=== PATIENT | female | born 1970 | race Caucasian/White ===

== ENCOUNTER → 2020-08-06 | Day surgery (SDC) | payer BC ==
[~2020-08-06] VITALS: Ht 157.5 cm; Wt 49.9 kg
[2020-08-06] VITALS (9 sets, daily range): BP systolic 105–154; BP diastolic 68–90
[~2020-08-06] MED LIST: Atropine Sulfate 0.4mg/ml inj IVP PRN; DiphenhydrAMINE 50mg/ml Inj IVP PRN; HYDROcodone/Acetamin 5/325 tab ORAL PRN; HYDROcodone/Acetamin 7.5/325 tab ORAL PRN; Hydromorphone 0.5mg/0.5ml inj IVP PRN; Ketorolac 30mg Inj IV PRN; LORazepam Inj 2mg/ml 1ml IV PRN; LR 1000ml 1,000 ML IVLG SCH; Labetalol 5mg/ml 20ml vial IV PRN; Lidocaine 1% Plain 30 ml INJ ONE; Meperidine 25mg/1ml Inj (FOR RIGORS ONLY) IV PRN; Metoclopramide 10mg/2ml Inj IVP PRN; Midazolam 2mg/2ml Inj IVP PRN; fentaNYL 100 mcg/2 mL IV PRN; oxyCODONE HCL/Acetaminophen 5/325mg ORAL PRN
--- NOTE | 2020-08-06 07:09 | Pre-Procedure Note/Attestation ---
Pre-Procedure Note/Attestation Complete Prior to Procedure Planned Procedure: not applicable Procedure Narrative: esophagogastroduodenoscopy colon Indications for Procedure Pre-Operative Diagnosis: heme + stool Attestation I attest that I discussed the nature of the procedure; its benefits; risks and complications; and alternatives (and the risks and benefits of such alternatives), prior to the procedure, with the patient (or the patient's legal outside sales account representative). I attest that, if there was a reasonable possibility of needing a blood transfusion, the patient (or the patient's legal outside sales account representative) was given the [facility] standardized written summary, pursuant to the Karan Dundas Blood Safety Act ([place] Health and Safety Code # 1645, as amended). I attest that I re-evaluated the patient just prior to the surgery and that there has been no change in the patient's H&P, except as documented below: Irish Lewis MD Aug 06, 2020 07:09
--- NOTE | 2020-08-06 07:09 | Short Stay Surgery H&P ---
History of Present Illness History of Present Illness Chief Complaint see attached HPI Rachell Morales is a 49 year old female who was admitted on for Blood In Stool Patient History Allergies: Coded Allergies: PENICILLINS (Verified Allergy, Unknown, 08/05/20) Medication History No Active Prescriptions or Reported Meds Physical Exam Vital Signs Last Vital Signs Date Time Temp Pulse Resp B/P (MAP) Pulse Ox O2 Delivery O2 Flow Rate FiO2 08/06/20 06:17 Room Air 08/06/20 06:17 97.1 75 18 127/90 99 Plan Attestation Are the patient's medical conditions optimized for surgery? Irish Lewis MD Aug 06, 2020 07:09
--- NOTE | 2020-08-06 07:24 | Anethesia Preoperative Eval ---
Anesthesia Pre-op PMH/ROS General Date of Evaluation: Aug 06, 2020 Time of Evaluation: 06:49 Anesthesiologist: Jennifer ASA Score: ASA 3 Mallampati Score Class I : Soft palate, uvula, fauces, pillars visible Class II: Soft palate, uvula, fauces visible Class III: Soft palate, base of uvula visible Class IV: Only hard plate visible Mallampati Classification: Class II Surgeon: Joshua Diagnosis: Hematochiezia Surgical Procedure: EGD/ Colonoscopy Anesthesia History: none Family History: no anesthesia problems Allergies: Coded Allergies: PENICILLINS (Verified Allergy, Unknown, 08/05/20) Medications: see eMAR Patient NPO?: Yes Past Medical History Gastrointestinal/Genitourinary: Reports: other - Bloody Stool Neurologic/Psychiatric: Reports: depression/anxiety Anesthesia Pre-op Phys. Exam Physician Exam Last Vital Signs Date Time Temp Pulse Resp B/P (MAP) Pulse Ox O2 Delivery O2 Flow Rate FiO2 08/06/20 06:17 Room Air 08/06/20 06:17 97.1 75 18 127/90 99 Constitutional: NAD Neurologic: CN 2-12 intact Cardiovascular: RRR Respiratory: CTA Gastrointestinal: S/NT/ND Airway Exam Mallampati Score: Class II MO: full ROM: full Teeth: missing, intact Anesthesia Pre-op A/P Risk Assessment & Plan Assessment: ASA 3 Plan: TIVA Status Change Before Surgery: Sebastian Canada MD Aug 06, 2020 07:24
--- NOTE | 2020-08-06 07:25 | Immediate Post-Op Evaluation ---
Immediate Post-Op Evalulation Immediate Post-Op Evalulation Procedure: EGD/Colonoscopy Date of Evaluation: Aug 06, 2020 Time of Evaluation: 08:17 IV Fluids: 900 LR Blood Products: O Estimated Blood Loss: 3 Urinary Output: 0 Blood Pressure Systolic: 108 Blood Pressure Diastolic: 69 Pulse Rate: 68 Respiratory Rate: 16 O2 Sat by Pulse Oximetry: 100 Temperature (Fahrenheit): 97 Pain Score (1-10): 1 Nausea: No Vomiting: No Complications 0 Patient Status: awake, reacts, patent, none Hydration Status: adequate Sebastian Rodriguez MD Aug 06, 2020 07:25
--- NOTE | 2020-08-06 07:26 | 48 Hour Post Anesthesia Eval ---
Post Anesthesia Evaluation Procedure: EGD/Colonoscopy Date of Evaluation: Aug 06, 2020 Time of Evaluation: 11:23 Blood Pressure Systolic: 134 0: 78 Pulse Rate: 73 Respiratory Rate: 18 Temperature (Fahrenheit): 98 O2 Sat by Pulse Oximetry: 100 Airway: patent Nausea: No Vomiting: No Pain Intensity: 1 Hydration Status: adequate Cardiopulmonary Status: Stable Mental Status/LOC: patient returned to baseline Follow-up Care/Observations: 0 Post-Anesthesia Complications: 0 Follow-up care needed: ready to discharge Sebastian Rodriguez MD Aug 06, 2020 07:26
--- NOTE | 2020-08-06 08:01 | Endoscopy Procedure Note ---
Endoscopy Procedure Note General Indication for Procedure: Heme (+) stools Procedures Performed: flexible sigmoidoscopy, EGD Operative Findings/Diagnosis: mild bile reflux- bx, Colon mass at 17 cm - bx, ink injection Specimen: yes Pt Tolerated Procedure Well: Yes Estimated Blood Loss: none Anesthesia Anesthesiologist: Jerel Anesthesia: MAC Medications Medication Given: see anesthesia record Inserted Devices Implant(s) used?: No Quality Was there any complications?: No GI Core Measures 50 yrs or older w/o bx or poly: Not Applicable 10yrs. F/U recommended: Not Applicable Irish Lewis MD Aug 06, 2020 08:01
--- NOTE | 2020-08-06 08:06 | Brief Operative Note ---
Immediate Post Operative Note Operative Note Chief Complaint: hyeme (+) stool, abd pain, abnomal ultrasound Pre-op Diagnosis: heme + stool Procedure: EGD bx, colon bx, injection Post-op Diagnosis: bile reflux, colon mass Surgeon: tobias Anesthesiologist: Jennifer Anesthesia: MAC Specimen: yes Complications: none Condition: stable Fluids: per anesthesia Estimated Blood Loss: none Drains: none Implant(s) used?: No Irish Lewis MD Aug 06, 2020 08:06
--- NOTE | 2020-08-06 11:29 | Operative Note - Dictated ---
DATE OF OPERATION: 08/06/2020 GASTROENTEROLOGY PROCEDURE PROCEDURE: Upper gastrointestinal endoscopy with biopsy as well as flexible sigmoidoscopy with biopsy. SURGEON: Irish Lewis MD ANESTHESIOLOGIST: Sebastian Rodriguez MD PRE-ENDOSCOPIC DIAGNOSES: Heme-positive stools and abnormal ultrasound. POST-ENDOSCOPIC DIAGNOSES: 1. A 1- to 2-cm hiatal hernia. 2. Mild bile reflux. 3. Distal colon circumferential mass at 17 cm from the anal verge. The endoscope could not pass beyond this mass. Status post biopsy. DESCRIPTION OF PROCEDURE: The procedure, its risks, indications, alternatives, and possible complications including but not limited to bleeding, infection, perforation, , and anesthesia complications were explained to the patient and an informed consent was obtained. The patient was then sedated in the left lateral decubitus position and a diagnostic upper endoscope was introduced into oropharynx and advanced to the duodenum. The endoscope was then gradually withdrawn and mucosa examined carefully. Examination of the upper gastrointestinal mucosa revealed a 1- to 2-cm hiatal hernia. There was no evidence of esophagitis in the distal esophagus. In the stomach, there was a mild degree of bile reflux and some mild erythema. There were no masses or ulcers. Biopsies of the antrum were sent to Pathology for review. The duodenum was also normal and views of the ampulla did not reveal any masses. The endoscope was removed. The patient was turned around and a rectal exam was done, which was unremarkable. The colonoscope was then introduced into the rectum and advanced to approximately 17 cm. At this point, there was a circumferential mass, which caused significant narrowing of the lumen and did not allow the colonoscope to go through. The colonoscope was removed and the pediatric upper endoscope with outer diameter of 8.6 mm was used to try to advance this lesion; however, the narrowing caused by the mass did not allow the scope to go through either. Multiple biopsies of the mass were sent to Pathology for review. The needle was then used to inject the submucosa just distal to the mass to shona for possible surgical resection. The endoscope was removed. The patient was sent to recovery in good condition. COMPLICATIONS: None. ASSESSMENT: This patient has an advanced mass in the distal colon at approximately 17 cm shona, which needs to be evaluated by the surgeon for possible resection of it. It is a risk factor for colonic obstruction. Biopsies will be evaluated to determine the histologic features of the mass. The patient will be also advised to stay on a low-fiber diet and to start with MiraLAX daily to help the stools pass through the area. RECOMMENDATIONS: 1. Follow up biopsy results. 2. MiraLAX 17 g nightly. 3. Low-residue diet. 4. Surgical consultation. 5. Oncology consultation. Irish Lewis M.D. DR: DAMARIS JOB#: [id number] CC: Irish Lewis MD.; Fax#: [phone]
--- NOTE | 2020-08-06 13:29 | Procedure Note ---
DATE OF PROCEDURE: 08/06/2020 NOTE: INCOMPLETE DICTATION Irish Lewis M.D. DR: Maribell JOB#: [id number] CC: JUSTINE
== END | disposition home or self-care (01) ==
LOC: GAS 05:58
DX: C18.7 Malignant neoplasm of sigmoid colon (principal); K44.9 Diaphragmatic hernia without obstruction or gangrene; Z88.0 Allergy status to penicillin; F32.9 Major depressive disorder, single episode, unspecified; F41.9 Anxiety disorder, unspecified; K29.50 Unspecified chronic gastritis without bleeding
CPT/HCPCS: 43239; 45331; 94003; J2001; J2250; J2704; J7120; 45381; 94150